=== PATIENT | female | born 1995 | race Caucasian/White ===

== ENCOUNTER → 2016-11-24 | Outpatient (CLI) | payer OTHER ==
--- NOTE | 2016-11-24 20:43 | REP ---
Clinical: Anatomical evaluation. Comparison: 10/22/2016 . Findings: Examination demonstrates a single live intrauterine in breech presentation. motion is identified by technologist. Placenta is noted posteriorly and grade zero without evidence for placenta previa or abruption. Amniotic fluid volume is normal. Cervix measures 3.9 cm in length and appears closed. Nuchal cord cannot be excluded. Gestational age by first ultrasound 25 weeks 5-day with PRAKASH 03/04/2017 . Gestational age by current measurements 26 weeks 0 days with PRAKASH 03/02/2017 . FHR equals 157 beats per minute. BPD 6.6 26 weeks 5 days HC 24.6 26 weeks 5 days AC 22.1 26 weeks 4 days FL 4.8 25 weeks 6 days HL 4.4 26 weeks 2 days HC/AC ratio 1.12 Estimated weight 922 grams ( 61st percentile). Anatomical assessment demonstrates normal structures including cranium, choroid plexus, cavum, cerebellum/posterior fossa, facial features, lungs, four-chamber heart/ventricular outflow tracts, diaphragm, stomach, cord insertion/three-vessel cord, kidneys/bladder, spine, and extremities. Impression: Breech presentation demonstrating appropriate interval growth. In conjunction with prior examination anatomical assessment is complete and normal. Signed by Pako Oro MD 11/24/2016 08:35 P
== END ==
LOC: M SMT 10:56
PROVIDERS: ATTEND Advanced Practice Midwife
DX: Z36 Encounter for antenatal screening of mother (principal); Z3A.25 25 weeks gestation of pregnancy

== ENCOUNTER → 2016-12-02 | Outpatient (CLI) | payer OTHER ==
[2016-12-02 18:13] LABS: BASO % 0.2 % (0.0-1.0); EOS # 0.1 K/mm3 (0.0-0.50); EOS % 0.7 % (0.0-3.0); LARGE UNSTAINED CELL # 0.2 K/mm3 (0.0-0.4); LARGE UNSTAINED CELL % 1.5 % (0.0-4.0); LYMPH # 1.7 K/mm3 (1.5-6.5); LYMPH % 17.4 % (24.0-44.0); MEAN CORPUSCULAR HEMOGLOBIN 29.6 pg (27.0-33.0); MEAN CORPUSCULAR HGB CONC 33.9 g/dl (32.0-36.5); MEAN CORPUSCULAR VOLUME 87.3 fl (80.0-96.0); MONO # 0.4 K/mm3 (0.0-0.8); MONO % 4.2 % (0.0-5.0); NEUTROPHILS # 7.4 K/mm3 (1.8-7.7); PLATELET COUNT, AUTOMATED 201 k/mm3 (150-450); RED CELL DISTRIBUTION WIDTH 12.9 % (11.5-14.5); WHITE BLOOD COUNT 9.7 K/mm3 (4.0-10.0)
== END ==
LOC: M SMT 13:43
PROVIDERS: ATTEND Advanced Practice Midwife
DX: Z36 Encounter for antenatal screening of mother (principal); Z3A.00 Weeks of gestation of pregnancy not specified

== ENCOUNTER → 2016-12-14 | Outpatient (CLI) | payer OTHER | LOC: M LAB 07:01 | PROVIDERS: ATTEND Advanced Practice Midwife | DX: Z36 Encounter for antenatal screening of mother (principal) ==

== ENCOUNTER → 2017-01-11 | Outpatient (REF) | payer OTHER | LOC: M SFHCLERA 18:06 | PROVIDERS: ATTEND Nurse Practitioner Family | DX: J02.9 Acute pharyngitis, unspecified (principal) ==

== ENCOUNTER → 2017-02-09 | Outpatient (REF) | payer OTHER | LOC: M LAB REF 17:04 | PROVIDERS: ATTEND Advanced Practice Midwife | DX: Z36 Encounter for antenatal screening of mother (principal); Z3A.00 Weeks of gestation of pregnancy not specified ==

== ENCOUNTER 2017-02-21 22:14 | Inpatient (IN) | payer OTHER ==
[~2017-02-21] VITALS: Ht 157.5 cm; Wt 77.0 kg
[2017-02-21 22:24] VITALS: BP 138/77
[2017-02-21 22:27] VITALS: BP 138/77
[2017-02-21] MEDS ORDERED: OXYTOCIN 30 UNITS IN 0.9% NaCl 500ML IV BAG (J2590) As Ordered ONE (22:44)
[2017-02-21] MEDS ORDERED: OXYTOCIN DRIP 30 UNITS in APPROPRIATE DILUENT 1 EA IV SCH (22:45)
[2017-02-21 23:00] VITALS: BP 168/90
[2017-02-21 23:16] VITALS: BP 143/80
[2017-02-21 23:17] LABS: MEAN CORPUSCULAR HEMOGLOBIN 29.1 pg (27.0-33.0); MEAN CORPUSCULAR HGB CONC 33.8 g/dl (32.0-36.5); RED CELL DISTRIBUTION WIDTH 14.2 % (11.5-14.5); WHITE BLOOD COUNT 11.6 K/mm3 (4.0-10.0)
[2017-02-21 23:31] VITALS: BP 139/67
--- NOTE | 2017-02-21 23:55 | HPE ---
DATE OF ADMISSION: 02/21/2017 Eileen is 21-year-old 1, para 0. She is at t 38+ weeks gestation with an estimated date of confinement (EDC) of 03/07/2017 based on last normal period and confirmed by second trimester ultrasound. She presents to labor and delivery today with report of spontaneous rupture of membranes at 01:30 on 02/21/2017. She does report contractions started about 15 minutes after that. She reports that she had continued leakage of fluid throughout the day. Denies bloody show. Fetus has been active. care was initiated at [facility] in the second trimester as a transfer in from alternate care provider. course has been uncomplicated. OBSTETRICAL HISTORY: Primigravida. Obstetrical labs: Blood type O+, antibody screen negative. Pap normal, rubella immune, VDRL nonreactive. Urine culture negative. Hepatitis B surface antigen negative. Human immunodeficiency virus (HIV) negative. Hepatitis C antibody negative, toxoplasmosis negative, gonorrhea and chlamydia negative. She declined genetic serum screening markers. Gestational diabetic screening elevated at 134, three hour glucose tolerance test normal, fasting 87, one-hour 164, two-hour 116, three-hour 164. Group B streptococcus (GBS) is negative. PAST MEDICAL HISTORY: Seasonal allergies. SURGERIES: Tonsillectomy, adenoidectomy and tympanostomy FAMILY HISTORY: Noncontributory. SOCIAL HISTORY: The patient is to an active duty soldier. He is at bedside and supportive. She is a nonsmoker. Denies alcohol and drug use. No history of any sexually transmitted diseases (STDs) and denies history of abuse, physical, sexual, emotional. ALLERGIES: YRTE Current medications include vitamin OBJECTIVE: Temperature 99.7, pulse 82, respirations 18, blood pressure is 138/77. She is alert and oriented times 3. She is tense and appear slightly uncomfortable with her contractions. heart rate is 140, moderate variability, positive excels and occasional variable deceleration observed. Sterile spec exam grossly ruptured, positive Nitrazine, positive pooling, positive ferning. Contractions approximately every 4 minutes. Sterile vaginal exam 2 cm dilated 80% effaced -2 station. No bloody show. Her abdomen is gravid, cephalic presentation which was confirmed by bedside ultrasound as well. Estimated weight 7 pounds. ASSESSMENT: Intrauterine at 38+ weeks gestation. heart rate category II. Premature rupture of membranes. PLAN: Admit the patient to labor and delivery. Start IV Pitocin for labor induction. Labs is ordered. Out of bed ad erwin. Clear liquid diet. The patient will likely desire an epidural when she is in active labor. I did review risks to expectant management which include increased risk for infection and fetus to induction, increased risk for section, intolerance to labor and a failed induction. The patient had all of her questions answered and desires to proceed with procedure of induction.
[2017-02-22] VITALS (42 sets, daily range): BP systolic 109–141; BP diastolic 54–81
[2017-02-22] MEDS: LR 1,000 ML IV SCH ×4 (02:06→18:52)
[2017-02-22] MEDS ORDERED: FENTANYL 2MCG/ML ROPIVACAINE 0.2% IN 0.9% NACL 200ML IVBAG As Ordered ONE (02:13)
[2017-02-22] MEDS ORDERED: ePHEDrine SULFATE 25 MG/5 ML(5MG/ML) SYRINGE IV PRN (03:02)
[2017-02-22] MEDS ORDERED: EPIDURAL/PCA KEYS XX PRN (03:02)
[2017-02-22] MEDS ORDERED: EPIDURAL COMMENT XX SCH (03:02)
[2017-02-22] MEDS ORDERED: NALOXONE INJ 0.4 MG/1 ML VIAL (J2310) IV PRN (03:02)
[2017-02-22] MEDS ORDERED: LACTATED RINGER'S 1000 ML IV PRN (03:02)
[2017-02-22] MEDS ORDERED: FENTANYL/ROPIVACAINE/NACL BAG 200 ML EPIDURAL SCH (03:02)
[2017-02-22] MEDS ORDERED: ONDANSETRON 4MG/2ML VIAL (J2405) IV PRN ×3 (03:02→11:45)
[2017-02-22] MEDS ORDERED: REFRIGERATOR IV KEYS XX PRN (03:02)
[2017-02-22] MEDS ORDERED: diphenhydrAMINE INJ 50MG/ML VIAL (J1200) IV PRN (03:02)
[2017-02-22] MEDS ORDERED: LACTATED RINGER'S 1000 ML IV STA (06:16)
[2017-02-22] MEDS ORDERED: BICITRA 30ML SOLN UDC PO ONE ×2 (06:30→10:30)
[2017-02-22] MEDS: PRENATAL VITAMIN TAB PO SCH (09:00)
[2017-02-22] MEDS ORDERED: MORPHINE PRES-FREE INJ 10 MG/10 ML VIAL (J2274) As Ordered ONE (09:43)
[2017-02-22] MEDS ORDERED: ONDANSETRON 4MG/2ML VIAL (J2405) As Ordered ONE ×2 (10:25→10:38)
[2017-02-22] MEDS ORDERED: dexameTHASONE 4 MG/ML 1ML VIAL (J1100) As Ordered ONE (10:38)
[2017-02-22] MEDS ORDERED: OXYTOCIN INJ 10 UNITS/ML VIAL (J2590) As Ordered ONE (10:41)
[2017-02-22 10:58] LABS: CORD GAS ABE A -6.4; CORD GAS HCO3 A 21.6 MEQ/L; CORD GAS O2 SAT A 26.3 %; CORD GAS PCO2 A 51.9 mmHg; CORD GAS PH A 7.238 UNITS; CORD GAS PO2 A 16.5 mmHg; CORD GAS SBC A 17.6 MEQ/L; CORD GAS TCO2 A 23.2 MEQ/L
[2017-02-22 11:00] LABS: CORD GAS ABE V -3.8; CORD GAS HCO3 V 20.1 MEQ/L; CORD GAS O2 SAT V 79.9 %; CORD GAS PCO2 V 34.2 mmHg; CORD GAS PH V 7.387 UNITS; CORD GAS PO2 V 47.8 mmHg; CORD GAS SBC V 20.9 MEQ/L; CORD GAS TCO2 V 21.1 MEQ/L
[2017-02-22] MEDS ORDERED: RHOGAM 300 MCG (1500 IU) INJ (J2790) IM SCH (11:15)
[2017-02-22] MEDS ORDERED: OXYTOCIN DRIP 30 UNITS in APPROPRIATE DILUENT 1 EA IV ONE (11:15)
[2017-02-22] MEDS ORDERED: MEASLES,MUMPS,RUBELLA VACCINE INJ (MMR-II) (90707) SC SCH (11:15)
[2017-02-22] MEDS ORDERED: OXYTOCIN DRIP 30 UNITS in APPROPRIATE DILUENT 1 EA IV SCH (11:21)
[2017-02-22] MEDS ORDERED: KETOROLAC 30 MG/ML VIAL (J1885) IV PRN (11:45)
[2017-02-22] MEDS ORDERED: NALBUPHINE HCL 10 MG/ML AMP (J2300) IV PRN (11:45)
[2017-02-22] MEDS ORDERED: fentaNYL 100 MCG/2 ML INJECTION (J3010) IV PRN (11:45)
[2017-02-22] MEDS: KETOROLAC 30 MG/ML VIAL (J1885) IV SCH ×2 (12:00→18:51)
[2017-02-22] MEDS ORDERED: ACETAMINOPHEN 500 MG TAB PO ONE (12:00)
[2017-02-22] MEDS: AMPICILLIN SOD/SULBACTAM SOD 3 GM in D5W MINI-BAG PLUS 100 ML IV SCH ×2 (12:09→18:52)
[2017-02-23] VITALS (8 sets, daily range): BP systolic 119–143; BP diastolic 64–89
[2017-02-23] MEDS: KETOROLAC 30 MG/ML VIAL (J1885) IV SCH ×2 (00:44→06:08)
[2017-02-23] MEDS: AMPICILLIN SOD/SULBACTAM SOD 3 GM in D5W MINI-BAG PLUS 100 ML IV SCH ×2 (00:44→06:09)
[2017-02-23] MEDS: LR 1,000 ML IV SCH (03:07)
[2017-02-23] MEDS ORDERED: OXYC1TAB23 PO (06:56)
[2017-02-23] MEDS ORDERED: IBUP600T26 PO (06:58)
[2017-02-23] MEDS ORDERED: COLA100C3 PO (06:58)
[2017-02-23 07:38] LABS: MEAN CORPUSCULAR HEMOGLOBIN 28.5 pg (27.0-33.0); MEAN CORPUSCULAR HGB CONC 32.8 g/dl (32.0-36.5); MEAN CORPUSCULAR VOLUME 86.8 fl (80.0-96.0); RED CELL DISTRIBUTION WIDTH 14.7 % (11.5-14.5); WHITE BLOOD COUNT 13.8 K/mm3 (4.0-10.0)
[2017-02-23] MEDS: PRENATAL VITAMIN TAB PO SCH (08:28)
[2017-02-23] MEDS: PERCOCET 5MG/325MG TAB PO PRN ×2 (13:24→20:12)
[2017-02-23] MEDS: IBUPROFEN 800 MG TAB PO SCH (14:50)
[2017-02-24] MEDS: IBUPROFEN 800 MG TAB PO SCH ×4 (00:47→22:13)
[2017-02-24] MEDS: PERCOCET 5MG/325MG TAB PO PRN ×3 (00:47→22:13)
[2017-02-24] MEDS: LR 1,000 ML IV SCH ×3 (03:07→11:07)
[2017-02-24 05:39] VITALS: BP 147/86
[2017-02-24] MEDS: PRENATAL VITAMIN TAB PO SCH (07:33)
[2017-02-24 18:00] VITALS: BP_SYST 102; BP_SYST 152; BP_DIAS 59; BP_DIAS 68
[2017-02-25] MEDS: PERCOCET 5MG/325MG TAB PO PRN (06:12)
[2017-02-25] MEDS: IBUPROFEN 800 MG TAB PO SCH (06:13)
[2017-02-25 06:20] VITALS: BP 139/73
[2017-02-25] MEDS: PRENATAL VITAMIN TAB PO SCH (07:54)
--- NOTE | 2017-02-25 08:56 | DSES ---
DATE OF ADMISSION: 02/21/2017 DATE OF DISCHARGE: 02/25/2017 DISCHARGE DIAGNOSIS: Primary section for non-reassuring heart rate tracing. PROCEDURES PERFORMED WHILE IN HOSPITAL: 1. Epidural. 2. Primary section. DISCHARGE CONDITION: Stable. HISTORY AND HOSPITAL COURSE: This patient presented on 02/21. Her labor was augmented and then she began to have repetitive variable decelerations. Pitocin, which was started for augmentation of labor, was stopped several times. The decision was made to proceed with a primary section secondary to non-reassuring heart rate tracing with persistent category 2 tracing. section was uncomplicated, productive of a liveborn male infant. scores were 8 and 9. Weight was 3512 grams or 7 pounds 12 ounces. Estimated blood loss was 700 mL at the time of surgery. She did well postoperatively and by postoperative day 3, had met all discharge criteria and she was discharged home in stable condition. PHYSICAL EXAM ON DISCHARGE: Her vital signs were stable. She was afebrile. GENERAL APPEARANCE: Well appearing, in no acute distress. Incision was clean, dry and intact, well approximated with Steri-Strips, nonerythematous. Fundus was below the umbilicus. Lower extremities were negative for calf tenderness. DISCHARGE MEDICATIONS: - ibuprofen - Percocet - Colace DISCHARGE INSTRUCTIONS: 1. She was instructed to followup in two weeks for incision check. 2. Remain on pelvic rest for six weeks. 3. To report severe pain, heavy vaginal bleeding, fever, breast feeding or incisional issues.
== END 2017-02-25 10:35 | disposition home or self-care (01) | DRG 766 ==
LOC: M LDO 22:14 → M LDI 22:38 → M OBS 02-22 13:15
PROVIDERS: ADMIT Advanced Practice Midwife; ATTEND Advanced Practice Midwife
PROC: 10D00Z1 Extraction of Products of Conception, Low, Open Approach (ICD-10-PCS; principal; 2017-02-22 10:38)
DX: O76 Abnormality in fetal heart rate and rhythm complicating labor and delivery (principal); Z37.0 Single live birth; Z3A.38 38 weeks gestation of pregnancy; Z88.8 Allergy status to other drugs, medicaments and biological substances; O42.02 Full-term premature rupture of membranes, onset of labor within 24 hours of rupture; O62.0 Primary inadequate contractions

== ENCOUNTER 2017-02-28 10:03 | Emergency (ER) | payer OTHER ==
[~2017-02-28] VITALS: Ht 157.5 cm; Wt 77.1 kg
[2017-02-28] MEDS ORDERED: NS 1,000 ML IV ONE (11:30)
== END 2017-02-28 13:04 | disposition other institution (70) ==
LOC: M ED 10:53
DX: T88.59XA Other complications of anesthesia, initial encounter (principal); X58.XXXA Exposure to other specified factors, initial encounter; Y92.89 Other specified places as the place of occurrence of the external cause; Z87.891 Personal history of nicotine dependence; Z88.8 Allergy status to other drugs, medicaments and biological substances

== ENCOUNTER → 2017-02-28 | Outpatient (CLI) | payer OTHER ==
[~2017-02-28] MED LIST: COLA100C3 PO; IBUP600T26 PO; OXYC1TAB23 PO
== END ==
LOC: M OROP 13:40
PROVIDERS: ATTEND Anesthesiology
DX: T88.59XA Other complications of anesthesia, initial encounter (principal); X58.XXXA Exposure to other specified factors, initial encounter; Y92.89 Other specified places as the place of occurrence of the external cause

== ENCOUNTER → 2017-08-08 | Outpatient (REF) | payer OTHER ==
[~2017-08-08] MED LIST changes: -COLA100C3 PO; +COLA100C5 PO; +IBUP-1022 PO; -IBUP600T26 PO
== END ==
LOC: M SFHCLERA 10:07
PROVIDERS: ATTEND Family Medicine
DX: Z30.09 Encounter for other general counseling and advice on contraception (principal); Z53.9 Procedure and treatment not carried out, unspecified reason

== ENCOUNTER → 2019-08-17 | Outpatient (CLI) | payer OTHER ==
[2019-08-17 18:53] LABS: BASO # 0.1 10^3/uL (0.0-0.2); BASO % 0.7 % (0.0-1.0); EOS # 0.1 10^3/uL (0.0-0.5); EOS % 0.7 % (0.0-3.0); HEMOGLOBIN 14.2 g/dl (12.0-15.5); LYMPH # 2.3 10^3/uL (1.5-5.0); LYMPH % 25.2 % (24.0-44.0); MEAN CORPUSCULAR HEMOGLOBIN 30.9 pg (27.0-33.0); MEAN CORPUSCULAR HGB CONC 33.8 g/dl (32.0-36.5); MEAN CORPUSCULAR VOLUME 91.3 fl (80.0-96.0); MONO # 0.8 10^3/uL (0.0-0.8); MONO % 8.3 % (0.0-5.0); NEUTROPHILS # 5.9 10^3/uL (1.5-8.5); NEUTROPHILS % 64.8 % (36.0-66.0); PLATELET COUNT, AUTOMATED 241 10^3/uL (150-450); WHITE BLOOD COUNT 9.2 10^3/uL (4.0-10.0)
[2019-08-17 19:19] LABS: HEPATITIS C VIRUS ABY INDEX 0.1 INDEX (<0.8); HIV 1&2 SCREEN CENTAUR NEGATIVE (NEGATIVE); RUBELLA IgG QUALITATIVE IMMUNE (IMMUNE)
[2019-08-17 22:47] LABS: CHLAMYDIA DNA AMPLIFICATION NEGATIVE (NEGATIVE); GC DNA AMPLIFICATION NEGATIVE (NEGATIVE)
== END ==
LOC: M SMT 14:55
PROVIDERS: ATTEND Advanced Practice Midwife
DX: Z34.81 Encounter for supervision of other normal pregnancy, first trimester (principal); Z3A.00 Weeks of gestation of pregnancy not specified

== ENCOUNTER → 2019-08-20 | Outpatient (CLI) | payer OTHER | LOC: M SMT 11:47 | PROVIDERS: ATTEND Advanced Practice Midwife | DX: Z13.79 Encounter for other screening for genetic and chromosomal anomalies (principal) ==

== ENCOUNTER → 2019-10-17 | Outpatient (CLI) | payer OTHER ==
--- NOTE | 2019-10-17 16:24 | REP ---
Clinical: Anatomical evaluation. Comparison: None . Findings: Examination demonstrates a single live intrauterine in transverse (head to maternal right) presentation. motion is identified by technologist. Placenta is noted anterior and grade I I without evidence for placenta previa or abruption. Amniotic fluid volume is normal. Cervix measures 4.1 cm in length and appears closed. Nuchal cord cannot be excluded. Gestational age by LMP 19 weeks 3 days with PRAKASH 03/09/2020 . Gestational age by current measurements 19 weeks 4 days with PRAKASH 03/08/2020 . FHR equals 149 beats per minute. BPD 4.6 cm 19 weeks 6 days HC 16.9 cm 19 weeks 4 days AC 15.0 cm 20 weeks 2 days FL 2.9 cm 18 weeks 6 days HL 2.9 cm 19 weeks 2 days HC/AC ratio 1.13 Estimated weight 302 grams ( 54th percentile). Anatomical assessment demonstrates normal structures including cranium, choroid plexus, cavum, cerebellum/posterior fossa, nose/lips, diaphragm, stomach, cord insertion/three-vessel cord, kidneys/bladder, spine, and extremities. Limited evaluation of the facial profile, lungs, heart/ventricular outflow tract. Impression: 1. Single live intrauterine in transverse lie demonstrating appropriate interval growth. 2. Nuchal cord cannot be excluded. 3. Anatomical limitations as noted above may warrant reevaluation and follow-up. Electronically Signed by Pako Oro MD 10/17/2019 04:16 P
== END ==
LOC: M RAD 15:18
PROVIDERS: ATTEND Advanced Practice Midwife
DX: Z34.82 Encounter for supervision of other normal pregnancy, second trimester (principal); Z3A.00 Weeks of gestation of pregnancy not specified

== ENCOUNTER → 2019-11-30 | Outpatient (CLI) | payer OTHER ==
--- NOTE | 2019-11-30 17:59 | REP ---
OB ULTRASOUND: Real-time sonographic evaluation of the gravid uterus is performed. There is a single living intrauterine gestation. The estimated gestational age is 25 weeks 5 days. EDC 03/09/2020. Today's measurements indicate appropriate growth. BPD 65 mm = 26 weeks 3 days, at the 64th percentile. HC 240 mm = 26 weeks 1 day, at the 59th percentile. AC 219 mm = 26 weeks 2 days, at the 63rd percentile. Femur length 48 mm = 25 weeks 6 days, at the 55th percentile. HC/AC ratio 1.10 within normal range. Estimated weight 901 grams , 56th percentile. Cervix is closed measures 4.4 cm in length. heart rate 147 beats per minute. SEEN/GROSSLY UNREMARKABLE Lateral ventricles Yes Posterior fossa Yes Upper lip Yes Four-chamber heart Yes LVOT Yes RVOT Yes Stomach Yes Cord insertion Yes Three vessel cord Yes Kidneys Yes Bladder Yes Spine No position: Variable. Placenta: Anterior and grade 0 with no previa or abruption. Amniotic fluid: Within normal limits. Electronically Signed by Ant Grier MD 12/01/2019 03:28 P
== END ==
LOC: M RAD 16:09
PROVIDERS: ATTEND Specialist
DX: Z34.92 Encounter for supervision of normal pregnancy, unspecified, second trimester (principal); Z3A.25 25 weeks gestation of pregnancy

== ENCOUNTER 2020-01-26 12:46 | Outpatient (CLI) | payer OTHER ==
[~2020-01-26] VITALS: Ht 157.5 cm; Wt 75.0 kg
[2020-01-26 13:20] VITALS: BP 133/72
[2020-01-26] MEDS ORDERED: PRENTAB9 PO (15:05)
[2020-01-26] MEDS ORDERED: LACTATED RINGER'S 1000 ML IV STA (16:14)
[2020-01-26] MEDS ORDERED: ONDANSETRON 4MG/2ML VIAL (J2405) IV PRN (16:15)
[2020-01-26] MEDS ORDERED: LR 1,000 ML IV SCH (16:30)
[2020-01-26 17:22] LABS: AMPHETAMINES URINE REFLEX NEGATIVE (NEGATIVE); BARBITURATES URINE REFLEX NEGATIVE (NEGATIVE); BENZODIAZEPINES URINE REFLEX NEGATIVE (NEGATIVE); CANNABINOIDS URINE REFLEX NEGATIVE (NEGATIVE); COCAINE METABOLITE URINE REFLE NEGATIVE (NEGATIVE); METHADONE URINE REFLEX NEGATIVE (NEGATIVE); OPIATES URINE REFLEX NEGATIVE (NEGATIVE); PHENCYCLIDINE URINE REFLEX NEGATIVE (NEGATIVE)
[2020-01-26 18:43] VITALS: BP 121/58
== END 2020-01-26 20:32 | disposition home or self-care (01) ==
LOC: M LDO 12:46
PROVIDERS: ATTEND Obstetrics & Gynecology
DX: O99.613 Diseases of the digestive system complicating pregnancy, third trimester (principal); K52.89 Other specified noninfective gastroenteritis and colitis; Z3A.33 33 weeks gestation of pregnancy; O21.8 Other vomiting complicating pregnancy; Z88.8 Allergy status to other drugs, medicaments and biological substances; O26.893 Other specified pregnancy related conditions, third trimester; R00.2 Palpitations; R19.7 Diarrhea, unspecified; Z79.899 Other long term (current) drug therapy
CPT/HCPCS: 59025; 80307; 96374; G0378; G0463; J2405

== ENCOUNTER → 2020-02-08 | Outpatient (REF) | payer OTHER ==
[~2020-02-08] MED LIST changes: +PRENTAB9 PO
== END ==
LOC: M SFHCWAGY 17:00
PROVIDERS: ATTEND Obstetrics & Gynecology
DX: Z36.85 Encounter for antenatal screening for Streptococcus B (principal); Z3A.35 35 weeks gestation of pregnancy

== ENCOUNTER 2020-03-14 05:01 | Inpatient (IN) | payer OTHER ==
[2020-03-14] VITALS (10 sets, daily range): BP systolic 114–144; BP diastolic 56–86
[~2020-03-14] VITALS: Ht 157.5 cm; Wt 78.2 kg
[2020-03-14] MEDS ORDERED: ceFAZolin SOD 2 GM in IV 1 EA IV ONE (05:30)
[2020-03-14] MEDS ORDERED: BICITRA 30ML SOLN UDC PO ONE (05:30)
[2020-03-14] MEDS ORDERED: LR 1,000 ML IV ONE (05:30)
[2020-03-14] MEDS ORDERED: LR 1,000 ML IV SCH ×2 (05:30→09:00)
[2020-03-14 06:33] LABS: HEMATOCRIT 35.9 % (36.0-47.0); HEMOGLOBIN 11.8 g/dl (12.0-15.5); MEAN CORPUSCULAR HEMOGLOBIN 27.8 pg (27.0-33.0); MEAN CORPUSCULAR HGB CONC 32.9 g/dl (32.0-36.5); MEAN CORPUSCULAR VOLUME 84.7 fl (80.0-96.0); PLATELET COUNT, AUTOMATED 140 10^3/uL (150-450); RED BLOOD COUNT 4.24 10^6/uL (4.00-5.40); WHITE BLOOD COUNT 11.2 10^3/uL (4.0-10.0)
[2020-03-14] MEDS ORDERED: diphenhydrAMINE 50MG/ML VIAL (J1200) IV PRN ×2 (07:43→09:00)
[2020-03-14] MEDS ORDERED: NALBUPHINE HCL 10 MG/ML AMP (J2300) IV PRN ×2 (07:43→09:00)
[2020-03-14] MEDS ORDERED: NALOXONE INJ 0.4MG/1ML VIAL (J2310 PER 1MG) IV PRN ×2 (07:43)
[2020-03-14] MEDS ORDERED: METOCLOPRAMIDE INJ 10MG/2ML VIAL (J2765 PER 1) IV PRN ×2 (07:43→09:00)
[2020-03-14] MEDS ORDERED: ONDANSETRON 4MG/2ML VIAL IV PRN ×3 (07:43→09:00)
[2020-03-14] MEDS ORDERED: MORPHINE PRES-FREE INJ 10 MG/10 ML VIAL (J2274) As Ordered ONE (07:57)
[2020-03-14] MEDS ORDERED: ePHEDrine SULFATE 25 MG/5 ML(5MG/ML) SYRINGE As Ordered ONE (07:58)
[2020-03-14] MEDS ORDERED: PHENYLephrine HCL 500 MCG/5 ML (100MCG/ML) SYRINGE (J2370) As Ordered ONE (07:58)
[2020-03-14] MEDS ORDERED: OXYTOCIN 30 UNITS IN 0.9% NaCl 500ML IV BAG (J2590) As Ordered ONE ×2 (07:58→09:09)
[2020-03-14] MEDS ORDERED: KETOROLAC 60 MG/2 ML VIAL As Ordered ONE (08:09)
[2020-03-14] MEDS ORDERED: ONDANSETRON 4MG/2ML VIAL As Ordered ONE (08:09)
[2020-03-14] MEDS ORDERED: OXYTOCIN DRIP 30 UNITS in IV 1 EA IV SCH (08:47)
[2020-03-14] MEDS ORDERED: OXYC1TAB23 PO (08:49)
[2020-03-14] MEDS ORDERED: IBUP80TA PO (08:54)
[2020-03-14] MEDS ORDERED: DOCU100C16 PO (08:54)
[2020-03-14] MEDS ORDERED: ACETAMINOPHEN 500 MG TAB PO PRN (09:00)
[2020-03-14] MEDS ORDERED: KETOROLAC 30 MG/ML 1ML VIAL IV PRN (09:00)
[2020-03-14] MEDS ORDERED: RHOGAM 300 MCG (1500 IU) INJ (J2790) IM SCH (09:00)
[2020-03-14] MEDS ORDERED: MEASLES,MUMPS,RUBELLA VACCINE INJ (MMR-II) (90707) SC SCH (09:00)
[2020-03-14] MEDS ORDERED: PERCOCET 5MG/325MG TAB PO PRN ×2 (09:00)
[2020-03-14] MEDS ORDERED: fentaNYL 100 MCG/2 ML INJECTION (J3010) IV PRN (09:00)
[2020-03-14] MEDS ORDERED: PROMETHAZINE 25 MG TAB PO PRN (09:00)
[2020-03-14] MEDS ORDERED: MEPERIDINE INJ 25 MG/ML VIAL (J2175) IV PRN (09:00)
[2020-03-14] MEDS: PRENATAL VITAMINS CHEWABLE TABLET PO SCH (10:37)
[2020-03-14] MEDS: DOCUSATE SODIUM 100 MG CAP PO SCH ×2 (10:37→21:14)
[2020-03-14] MEDS: KETOROLAC 30 MG/ML 1ML VIAL IV SCH ×2 (15:20→21:14)
[2020-03-14] MEDS ORDERED: LR 500 ML IV ONE (15:45)
[2020-03-14] MEDS: LR 1,000 ML IV SCH ×2 (17:00→21:24)
[2020-03-15 02:10] VITALS: BP 119/57
[2020-03-15] MEDS: KETOROLAC 30 MG/ML 1ML VIAL IV SCH (02:59)
[2020-03-15 05:52] VITALS: BP 117/63
[2020-03-15 07:43] LABS: HEMATOCRIT 29.8 % (36.0-47.0); MEAN CORPUSCULAR HEMOGLOBIN 29.2 pg (27.0-33.0); MEAN CORPUSCULAR HGB CONC 33.6 g/dl (32.0-36.5); MEAN CORPUSCULAR VOLUME 86.9 fl (80.0-96.0); PLATELET COUNT, AUTOMATED 104 10^3/uL (150-450); RED BLOOD COUNT 3.43 10^6/uL (4.00-5.40); WHITE BLOOD COUNT 11.1 10^3/uL (4.0-10.0)
--- NOTE | 2020-03-15 07:57 | IPNPDOC ---
Text Note Date of Service The patient was seen on 03/15/20. NOTE PO #1 Feels well. Adequate pain management. OOB independently. . Voiding and passing flatus VSS, afebrile, normotensive Breasts soft,nipples intact Fundus firm, NT Dressing dry, intact Lochia rubra scant without odor PO #1 Routine care. Conside discharge in am VS,Fishbone, I+O VS, Fishbone, I+O Laboratory Tests 03/15/20 07:17 Vital Signs Date Time Temp Pulse Resp B/P (MAP) Pulse Ox O2 Delivery O2 Flow Rate FiO2 03/15/20 05:52 99.0 75 18 117/63 (81) 98 03/14/20 18:00 Room Air I&O- Last 24 Hours up to 6 AM 03/15/20 06:00 Intake Total 1000 ml Output Total 1775 ml Balance -775 ml Lu English CNM Mar 15, 2020 07:57
[2020-03-15] MEDS: DOCUSATE SODIUM 100 MG CAP PO SCH ×2 (08:45→20:58)
[2020-03-15] MEDS: PERCOCET 5MG/325MG TAB PO PRN ×2 (08:46→22:52)
[2020-03-15] MEDS: PRENATAL VITAMINS CHEWABLE TABLET PO SCH (08:46)
[2020-03-15] MEDS ORDERED: BOOSTRIX/ADACEL VACCINE (DIPHTH/PERTUSS/ACELL/TETANUS) 0.5ML SYR IM ONE (09:00)
[2020-03-15 10:04] VITALS: BP 111/58
[2020-03-15] MEDS: IBUPROFEN 800 MG TAB PO SCH ×2 (11:41→18:53)
[2020-03-15 14:00] VITALS: BP 121/70
[2020-03-15 17:54] VITALS: BP 133/79
[2020-03-16] MEDS: IBUPROFEN 800 MG TAB PO SCH ×2 (02:59→11:38)
[2020-03-16 05:53] VITALS: BP 122/68
[2020-03-16] MEDS: PRENATAL VITAMINS CHEWABLE TABLET PO SCH (07:52)
[2020-03-16] MEDS: DOCUSATE SODIUM 100 MG CAP PO SCH (07:52)
--- NOTE | 2020-03-16 12:23 | DS.PDOC ---
Discharge Summary General Date of Admission Mar 14, 2020 at 05:01 Date of Discharge 03/16/20 Attending Physician: TEREZA GASPAR DO Discharge Summary PROCEDURES PERFORMED DURING STAY: Repeat section. ADMITTING DIAGNOSES: 1. 40+ weeks gestation with history of section. 2. Elective repeat section. DISCHARGE DIAGNOSES: 1. Repeat elective low transverse section. COMPLICATIONS/CHIEF COMPLAINT: C/S. HISTORY OF PRESENT ILLNESS: Patient is a [id number]-female who presented for an elective repeat section. She had a living male that weighed 8 lbs 10 oz/3920 grams with APGARS of 9/9. She had an uncomplicated surgery and uncomplicated postoperative. HOSPITAL COURSE: uncomplicated. DISCHARGE MEDICATIONS: Please see below. ALLERGIES: Please see below. PHYSICAL EXAMINATION ON DISCHARGE: VITAL SIGNS: Please see below. GENERAL: A+Ox3 CARDIOVASCULAR EXAMINATION: RRR with no rubs, murmurs, or gallops. RESPIRATORY EXAMINATION: Regular rate with no use of accessory muscles. ABDOMINAL EXAMINATION: Dressing intact. EXTREMITIES: generalized edema. SKIN: Warm, dry, with no lesions or rashes present. LABORATORY DATA: Please see below. ACTIVITY: As tolerated. DIET: regular DISCHARGE INSTRUCTIONS: 1. Discharge to home. 2. Education done on mastitis, DVT, pulmonary embolism, hemorrhage, depression and psychosis, pain management, care of incision, dressing removal, pelvic rest, and signs of infection. DISCHARGE CONDITION: Stable. Vital Signs/I&Os Vital Signs Date Time Temp Pulse Resp B/P (MAP) Pulse Ox O2 Delivery O2 Flow Rate FiO2 03/16/20 05:53 97.8 88 17 122/68 (86) 98 Room Air Laboratory Data CBC/BMP Item Value Date Time White Blood Count 11.2 10^3/uL H 03/14/20 0608 Red Blood Count 4.24 10^6/uL 03/14/20 0608 Hemoglobin 11.8 g/dl L 03/14/20 0608 Hematocrit 35.9 % L 03/14/20 0608 Mean Corpuscular Volume 84.7 fl 03/14/20 0608 Mean Corpuscular Hemoglobin 27.8 pg 03/14/20 0608 Mean Corpuscular Hemoglobin Concent 32.9 g/dl 03/14/20 0608 Red Cell Distribution Width 13.2 % 03/14/20 0608 Platelet Count 140 10^3/uL L 03/14/20 0608 Item Value Date Time White Blood Count 11.1 10^3/uL H 03/15/20 07 Red Blood Count 3.43 10^6/uL L 03/15/20 07 Hemoglobin 10.0 g/dl L 03/15/20716 Hematocrit 29.8 % L 03/15/20716 Mean Corpuscular Volume 86.9 fl 03/15/20716 Mean Corpuscular Hemoglobin 29.2 pg 03/15/20716 Mean Corpuscular Hemoglobin Concent 33.6 g/dl 03/15/20716 Red Cell Distribution Width 13.3 % 03/15/20716 Platelet Count 104 10^3/uL L 03/15/20716 Discharge Medications Scheduled Docusate Sodium (Docusate Sodium) 100 Mg Capsule, 100 MG PO BID Ibuprofen (Ibuprofen) 800 Mg Tablet, 800 MG PO Q8H No.137/Iron/Folic Acd ( Vitamin Tablet) 1 Each Tablet, 1 TAB PO DAILY, (Reported) Scheduled PRN Oxycodone HCl/Acetaminophen (Oxycodone-Acetaminophen 5-325) 1 Each Tablet, 1 TAB PO QIDP PRN for pain Allergies Coded Allergies: cetirizine (Verified Allergy, Severe, half of face and one hand went numb, 02/29/20) JADIEL OVERTON CNM Mar 16, 2020 12:23
== END 2020-03-16 13:15 | disposition home or self-care (01) | DRG 773 ==
LOC: M LDI 05:01 → M OBS 10:19
PROVIDERS: ADMIT Obstetrics & Gynecology; ATTEND Obstetrics & Gynecology
PROC: 10D00Z1 Extraction of Products of Conception, Low, Open Approach (ICD-10-PCS; principal; 2020-03-14 07:30)
DX: O34.211 Maternal care for low transverse scar from previous cesarean delivery (principal); O48.0 Post-term pregnancy; Z37.0 Single live birth; Z3A.40 40 weeks gestation of pregnancy; Z79.899 Other long term (current) drug therapy; Z88.8 Allergy status to other drugs, medicaments and biological substances

== ENCOUNTER → 2021-09-22 | Outpatient (REF) | payer OTHER ==
[~2021-09-22] MED LIST changes: +DOCU100C16 PO; +IBUP80TA PO
== END ==
LOC: M SFHCWAGY 19:07
PROVIDERS: ATTEND Obstetrics & Gynecology
DX: Z12.4 Encounter for screening for malignant neoplasm of cervix (principal)
CPT/HCPCS: G0123; G0463

== ENCOUNTER → 2021-11-02 | Outpatient (REF) | payer OTHER | LOC: M SFHCPLAZ 13:56 | PROVIDERS: ATTEND Physician Assistant | DX: D23.61 Other benign neoplasm of skin of right upper limb, including shoulder (principal) | CPT/HCPCS: 11102; 17110; 88305; G0463 ==